=== PATIENT | female | born 1955 | race Two or more races ===

== ENCOUNTER 2019-11-19 10:12 | Emergency (ER) | payer OTHER ==
[~2019-11-19] VITALS: Ht 175.3 cm; Wt 73.9 kg
[~2019-11-19 10:12] MED LIST: ASA81 MG; GLIMEPIRIDE4 MG; HYZAAR 100/25 T1 TAB PO; INTESTINEX1 CAP PO; NEURONTIN300 MG; OMEPRAZOLE40 MG PO; SV B COMPLEX SU59 ML
== END 2019-11-19 14:45 | disposition home or self-care (01) ==
LOC: ER 10:12
DX: R42 Dizziness and giddiness (principal)

== ENCOUNTER 2020-09-14 09:02 | Outpatient (CLI) | payer OTHER | END 2020-09-14 09:07 | disposition home or self-care (01) | LOC: LAB 09:02 | PROVIDERS: ATTEND Anesthesiology | DX: Z03.818 Encounter for observation for suspected exposure to other biological agents ruled out (principal) ==

== ENCOUNTER 2020-09-16 09:49 | Outpatient (CLI) | payer OTHER | END 2020-09-16 18:01 | disposition home or self-care (01) | LOC: PPH VACUNA 09:49 | PROVIDERS: ATTEND Emergency Medicine Pediatric Emergency Medicine | DX: Z23 Encounter for immunization (principal) ==

== ENCOUNTER 2020-10-07 09:36 | Outpatient (CLI) | payer OTHER | END 2020-10-07 15:00 | disposition home or self-care (01) | LOC: PPH VACUNA 09:36 | PROVIDERS: ATTEND Emergency Medicine Pediatric Emergency Medicine | DX: Z23 Encounter for immunization (principal) ==

== ENCOUNTER 2021-02-12 12:20 | Outpatient (CLI) | payer OTHER | END 2021-02-12 12:29 | disposition home or self-care (01) | LOC: NUCLEAR 12:20 | PROVIDERS: ATTEND Internal Medicine Cardiovascular Disease | DX: M81.0 Age-related osteoporosis without current pathological fracture (principal); E55.9 Vitamin D deficiency, unspecified ==

== ENCOUNTER 2021-06-14 08:00 | Outpatient (CLI) | payer OTHER | END 2021-06-14 08:30 | disposition home or self-care (01) | LOC: PPH VACUNA 08:00 | PROVIDERS: ATTEND Emergency Medicine Pediatric Emergency Medicine | DX: Z23 Encounter for immunization (principal) ==

== ENCOUNTER 2021-12-06 06:52 | Outpatient (CLI) | payer OTHER | END 2021-12-06 07:15 | disposition home or self-care (01) | LOC: SONOGRAMA 06:52 | PROVIDERS: ATTEND Internal Medicine Gastroenterology | DX: R10.84 Generalized abdominal pain (principal) ==

== ENCOUNTER → 2022-01-06 08:00 | Outpatient (CLI) | payer OTHER | END | disposition home or self-care (01) | LOC: PPH VACUNA 08:00 | PROVIDERS: ATTEND Emergency Medicine Pediatric Emergency Medicine | DX: Z23 Encounter for immunization (principal) ==

== ENCOUNTER 2022-06-08 08:00 | Outpatient (CLI) | payer OTHER | END 2022-06-08 08:05 | disposition home or self-care (01) | LOC: PPH VACUNA 08:00 | PROVIDERS: ATTEND Emergency Medicine Pediatric Emergency Medicine | DX: Z23 Encounter for immunization (principal) | CPT/HCPCS: 90686; G0008 ==

== ENCOUNTER 2022-11-21 09:22 | Outpatient (CLI) | payer OTHER | END 2022-11-21 09:36 | disposition home or self-care (01) | LOC: PPH VACUNA 09:22 | PROVIDERS: ATTEND Emergency Medicine Pediatric Emergency Medicine | DX: Z23 Encounter for immunization (principal) | CPT/HCPCS: 90653; G0008 ==

== ENCOUNTER 2022-12-05 15:02 | Outpatient (CLI) | payer OTHER | END 2022-12-05 15:07 | disposition home or self-care (01) | LOC: RAD 15:02 | PROVIDERS: ATTEND Orthopaedic Surgery | DX: M25.561 Pain in right knee (principal) ==

== ENCOUNTER 2023-06-09 09:50 | Outpatient (CLI) | payer OTHER | END 2023-06-09 10:00 | disposition home or self-care (01) | LOC: PPH VACUNA 09:50 | PROVIDERS: ATTEND Emergency Medicine Pediatric Emergency Medicine | DX: Z23 Encounter for immunization (principal) | CPT/HCPCS: 90686; G0008 ==

== ENCOUNTER 2024-11-21 11:39 | Emergency (ER) | payer OTHER ==
[~2024-11-21] VITALS: Ht 175.3 cm; Wt 71.2 kg
[2024-11-21 12:44] VITALS: BP 150/83; O2SAT 98
[2024-11-21] MEDS ORDERED: JENTADUETO 2.51 EAC2 PO (12:48)
[2024-11-21] MEDS ORDERED: SIMVASTATIN20 MG PO (12:49)
[2024-11-21] MEDS ORDERED: LOSARTAN POTAS100 MG PO (12:49)
[2024-11-21] MEDS ORDERED: SYNTHROID50 MCG PO (12:49)
[2024-11-21] MEDS ORDERED: PAXIL20 MG (12:50)
== END 2024-11-21 13:27 | disposition home or self-care (01) ==
LOC: ER 11:42
DX: R53.1 Weakness (principal); I10 Essential (primary) hypertension; E11.9 Type 2 diabetes mellitus without complications; Z79.84 Long term (current) use of oral hypoglycemic drugs

== ENCOUNTER 2024-12-04 09:19 | Outpatient (CLI) | payer OTHER ==
[~2024-12-04 09:19] MED LIST changes: +JENTADUETO 2.51 EAC2 PO; +LOSARTAN POTAS100 MG PO; +PAXIL20 MG; +SIMVASTATIN20 MG PO; +SYNTHROID50 MCG PO
== END 2024-12-04 09:28 | disposition home or self-care (01) ==
LOC: SONOGRAMA 09:19
PROVIDERS: ATTEND Internal Medicine Cardiovascular Disease
DX: M19.90 Unspecified osteoarthritis, unspecified site (principal)

== ENCOUNTER 2025-03-20 09:42 | Outpatient (CLI) | payer OTHER | END 2025-03-20 09:43 | disposition home or self-care (01) | LOC: NUCLEAR 09:42 | PROVIDERS: ATTEND Internal Medicine Cardiovascular Disease | DX: G30.9 Alzheimer's disease, unspecified (principal) | CPT/HCPCS: 78803; A9557 ==